=== PATIENT | male | born 2005 | race Caucasian/White ===

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

== ENCOUNTER 2023-09-20 09:46 | Emergency (ER) | payer BC, MEDICAID ==
[~2023-09-20] VITALS: Ht 175.3 cm; Wt 81.6 kg
[2023-09-20 10:02] VITALS: O2SAT 99
[2023-09-20] MEDS ORDERED: CYCL5TAB MT (10:32)
[2023-09-20] MEDS ORDERED: NAPR-679 MT (10:32)
[2023-09-20] MEDS ORDERED: ACET-2708 MT (10:32)
[2023-09-20 11:02] VITALS: BP 123/74; PULSE 87; RESP 16; TEMP 98
== END 2023-09-20 11:02 | disposition home or self-care (01) ==
LOC: ER 09:50
DX: S16.1XXA Strain of muscle, fascia and tendon at neck level, initial encounter (principal); V49.9XXA Car occupant (driver) (passenger) injured in unspecified traffic accident, initial encounter; Y93.89 Activity, other specified; Y92.89 Other specified places as the place of occurrence of the external cause; Y99.8 Other external cause status
CPT/HCPCS: 99283

== ENCOUNTER 2024-08-31 15:20 | Emergency (ER) | payer MEDICAID ==
[~2024-08-31] VITALS: Ht 175.3 cm; Wt 86.0 kg
[~2024-08-31 15:20] MED LIST: ACET-2708 MT; CYCL5TAB3 MT; NAPR-679 MT
[2024-08-31 15:31] VITALS: TEMP 36.9; O2SAT 100
[2024-08-31] MEDS ORDERED: BACITRACIN ZINC OINT UDPKT TOP ONE (16:15)
[2024-08-31] MEDS ORDERED: ACET-2708 MT (16:56)
[2024-08-31 17:20] VITALS: BP 98/74; PULSE 68; RESP 16; O2SAT 99
== END 2024-08-31 17:31 | disposition home or self-care (01) ==
LOC: ER 15:20
DX: R10.32 Left lower quadrant pain (principal); Z79.899 Other long term (current) drug therapy
CPT/HCPCS: 74018; 99283